=== PATIENT | male | born 1965 | race African-American/Black ===

== ENCOUNTER 2023-10-29 13:40 | Observation (INO) ==
[2023-10-29 14:14] LABS: ABS Basophils 0.1 10^3/uL (0.0-0.1); ABS Eosinophils 0.1 10^3/uL (0.0-0.5); ABS Lymphocytes 1.5 10^3/uL (1.0-4.8); ABS Monocytes 0.2 10^3/uL (0.0-1.1); ABS Neutrophils 2.7 10^3/uL (1.5-7.6); ABS Nucleated RBC 0.01 10^3/ul; Eosinophil % 1.7 %; Hematocrit 33.6 % (38-53); Hemoglobin 11.1 g/dL (13.2-16.3); Lymphocyte % 32.3 %; Mean Corpuscular Hemoglobin 25.9 pg (27-33); Mean Corpuscular Hgb Conc 32.9 g/dL (31-36); Mean Corpuscular Volume 78.6 fL (80-97); Mean Platelet Volume 8.9 fL (7.5-11.2); Nucleated Red Blood Cells % 0.2 %/100WBC (0.0-0.8); Platelet Count 210 10^3/uL (150-450); Red Blood Count 4.27 10^6/uL (4.06-5.63); Red Cell Distribution Width 19.1 % (12-17); White Blood Count 4.5 10^3/uL (3.6-10.2)
[2023-10-29 14:34] LABS: INR 1.17 (0.83-1.13)
[2023-10-29 14:56] LABS: Albumin/Globulin Ratio 1.5 (1-3); Calcium 10.2 mg/dL (8.6-10.3); Creatinine, Serum 1.07 mg/dL (0.67-1.17); Globulin 2.7 g/dL (2-4); Potassium 4.4 mmol/L (3.5-5.0); Total Bilirubin 0.4 mg/dL (0.2-1.0); Total Protein 6.7 g/dL (6.4-8.9); eGFR CKD-EPI 81.4 (>60)
[2023-10-29 15:53] LABS: High Sensitivity Troponin 1 Hr 30 pg/mL (<20)
[2023-10-29] MEDS: Iohexol 350 (CONTRAST) 500 ML MDV IV ONE (16:47)
[2023-10-29] MEDS: hydrALAZINE 20 mg/ml 1 ML Vial IV IV SLOW PU ONE (17:04)
[2023-10-29 18:06] LABS: High Sensitivity Troponin 3 Hr 31 pg/mL (<20)
[2023-10-29] MEDS: Morphine 2 MG/ML SYRINGE IV ONE (22:42)
[2023-10-30] MEDS: Buprenorp/Nalox 8-2 MG FILM SL SCH (00:05)
[2023-10-30 01:02] LABS: High Sensitivity Troponin 1 Hr 36 pg/mL (<20)
[2023-10-30] MEDS: Morphine 2 MG/ML SYRINGE IV ONE ×2 (05:50→20:25)
[2023-10-30 06:03] LABS: ABS Eosinophils 0.1 10^3/uL (0.0-0.5); ABS Lymphocytes 1.6 10^3/uL (1.0-4.8); ABS Monocytes 0.4 10^3/uL (0.0-1.1); ABS Neutrophils 2.2 10^3/uL (1.5-7.6); Eosinophil % 2.5 %; Hematocrit 33.7 % (38-53); Hemoglobin 11.1 g/dL (13.2-16.3); Lymphocyte % 36.8 %; Mean Corpuscular Hemoglobin 25.8 pg (27-33); Mean Corpuscular Volume 78.1 fL (80-97); Mean Platelet Volume 8.6 fL (7.5-11.2); Nucleated Red Blood Cells % 0.1 %/100WBC (0.0-0.8); Platelet Count 208 10^3/uL (150-450); Red Blood Count 4.31 10^6/uL (4.06-5.63); Red Cell Distribution Width 18.8 % (12-17); White Blood Count 4.3 10^3/uL (3.6-10.2)
[2023-10-30] MEDS: Enoxaparin 100 MG/ML SYR SUBCUT ONE (06:23)
[2023-10-30 06:24] LABS: Calcium 9.9 mg/dL (8.6-10.3); Creatinine, Serum 1.09 mg/dL (0.67-1.17); HDL Cholesterol 37.1 mg/dL; Phosphorus 3.5 mg/dL (2.5-5.0); Potassium 3.7 mmol/L (3.5-5.0); eGFR CKD-EPI 79.7 (>60)
[2023-10-30] MEDS: Aspirin EC 81 mg TAB.EC (enteric coated) PO SCH (08:10)
[2023-10-30] MEDS ORDERED: Aminophylline 25 MG/ML VIAL ONE (13:14)
[2023-10-30] MEDS ORDERED: Regadenoson 0.4 MG/5 ML SYRINGE ONE (13:14)
[2023-10-30] MEDS ORDERED: Sulfur Hexaflouride MICROSPHR 25 MG VIAL ONE (15:33)
[2023-10-30 18:57] LABS: Ferritin 40.6 ng/mL (24-336)
[2023-10-30 19:03] LABS: Folate 14.46 ng/mL (5.90-24.80)
[2023-10-30 20:08] LABS: C Reactive Protein 1.48 mg/L (<8.01)
[2023-10-31] MEDS: hydrALAZINE 20 mg/ml 1 ML Vial IV IV SLOW PU ONE (11:26)
[2023-10-31 13:59] VITALS: BP 172/97
[2023-11-04 14:28] LABS: Renin <0.6 ng/mL/h
== END 2023-10-31 17:43 ==
LOC: EDHOLD 13:40 → ED 13:40 → SUATTDRO 18:49 → MEDTELE 21:54
PROVIDERS: ADMIT Hospitalist; ATTEND Internal Medicine

== ENCOUNTER 2024-01-07 12:06 | Observation (INO) ==
[2024-01-07 12:52] LABS: ABS Eosinophils 0.2 10^3/uL (0.0-0.5); ABS Lymphocytes 1.5 10^3/uL (1.0-4.8); ABS Monocytes 0.2 10^3/uL (0.0-1.1); ABS Neutrophils 2.8 10^3/uL (1.5-7.6); ABS Nucleated RBC 0.01 10^3/ul; Eosinophil % 4.3 %; Hemoglobin 11.3 g/dL (13.2-16.3); Lymphocyte % 31.7 %; Mean Corpuscular Hemoglobin 25.5 pg (27-33); Mean Corpuscular Hgb Conc 31.5 g/dL (31-36); Mean Corpuscular Volume 80.8 fL (80-97); Mean Platelet Volume 9.3 fL (7.5-11.2); Nucleated Red Blood Cells % 0.3 %/100WBC (0.0-0.8); Platelet Count 195 10^3/uL (150-450); Red Blood Count 4.45 10^6/uL (4.06-5.63); Red Cell Distribution Width 20.3 % (12-17); White Blood Count 4.8 10^3/uL (3.6-10.2)
[2024-01-07] MEDS: Lactated Ringers 1000 ml BAG 1,000 ML IV SCH (12:57)
[2024-01-07 13:05] LABS: INR 1.43 (0.85-1.14)
[2024-01-07 13:12] LABS: Albumin/Globulin Ratio 1.7 (1-3); Calcium 9.9 mg/dL (8.6-10.3); Creatinine, Serum 1.09 mg/dL (0.67-1.17); Globulin 2.3 g/dL (2-4); Potassium 4.4 mmol/L (3.5-5.0); Total Bilirubin 0.4 mg/dL (0.2-1.0); Total Protein 6.3 g/dL (6.4-8.9); eGFR CKD-EPI 79.2 (>60)
[2024-01-07] MEDS: Iohexol 350 (CONTRAST) 500 ML MDV IV ONE (13:54)
[2024-01-07 14:08] LABS: High Sensitivity Troponin 1 Hr 53 pg/mL (<20)
[2024-01-07 16:24] LABS: High Sensitivity Troponin 3 Hr 60 pg/mL (<20)
[2024-01-07] MEDS: Morphine 2 MG/ML SYRINGE IV ONE (19:52)
[2024-01-07] MEDS: Enoxaparin 40 MG/0.4 ML SYR SUBCUT ONE (19:53)
[2024-01-07] MEDS: Buprenorp/Nalox 8-2 MG FILM SL SCH (19:53)
[2024-01-07 20:06] LABS: Urine Appearance Clear; Urine Bilirubin Negative (Negative); Urine Blood Negative (Negative); Urine Color Colorless; Urine Glucose Negative (Negative); Urine Ketones Negative (Negative); Urine Nitrite Negative (Negative); Urine Protein Negative (Negative); Urine Specific Gravity 1.024 (1.002-1.030); Urine Urobilinogen Negative (Negative)
[2024-01-07 20:23] LABS: Urine Benzodiazepine Screen None Detected (None Detect); Urine Cannabinoids Screen None Detected (None Detect); Urine Opiates Screen None Detected (None Detect)
[2024-01-07 21:12] LABS: HDL Cholesterol 30.5 mg/dL
[2024-01-08] MEDS: Aspirin EC 81 mg TAB.EC (enteric coated) PO SCH (09:34)
[2024-01-08 09:51] VITALS: BP 173/118
== END 2024-01-08 16:00 ==
LOC: ED 12:06 → EDHOLD 12:06 → MEDTELE 21:53
PROVIDERS: ADMIT Hospitalist; ATTEND Internal Medicine

== ENCOUNTER 2024-02-03 10:01 | Observation (INO) ==
[2024-02-03 11:20] LABS: ABS Eosinophils 0.3 10^3/uL (0.0-0.5); ABS Lymphocytes 1.8 10^3/uL (1.0-4.8); ABS Monocytes 0.4 10^3/uL (0.0-1.1); ABS Neutrophils 2.5 10^3/uL (1.5-7.6); ABS Nucleated RBC 0.01 10^3/ul; Eosinophil % 5.6 %; Hematocrit 35.5 % (38-53); Hemoglobin 11.6 g/dL (13.2-16.3); Lymphocyte % 36.5 %; Mean Corpuscular Hemoglobin 26.5 pg (27-33); Mean Corpuscular Hgb Conc 32.6 g/dL (31-36); Mean Corpuscular Volume 81.4 fL (80-97); Mean Platelet Volume 9.3 fL (7.5-11.2); Nucleated Red Blood Cells % 0.1 %/100WBC (0.0-0.8); Platelet Count 195 10^3/uL (150-450); Red Blood Count 4.36 10^6/uL (4.06-5.63); Red Cell Distribution Width 20.2 % (12-17); White Blood Count 4.9 10^3/uL (3.6-10.2)
[2024-02-03 11:30] LABS: INR 1.21 (0.85-1.14)
[2024-02-03 12:09] LABS: Albumin 4.2 g/dL (3.2-5.2); Albumin/Globulin Ratio 1.7 (1-3); Calcium 10.4 mg/dL (8.6-10.3); Creatinine, Serum 1.16 mg/dL (0.67-1.17); Globulin 2.5 g/dL (2-4); Potassium 4.4 mmol/L (3.5-5.0); Total Bilirubin 0.4 mg/dL (0.2-1.0); Total Protein 6.7 g/dL (6.4-8.9); eGFR CKD-EPI 73.5 (>60)
[2024-02-03 12:46] LABS: High Sensitivity Troponin 1 Hr 42 pg/mL (<20)
[2024-02-03] MEDS: Iohexol 350 (CONTRAST) 500 ML MDV IV ONE (13:07)
[2024-02-04] MEDS: Aspirin EC 81 mg TAB.EC (enteric coated) PO SCH (00:07)
[2024-02-04] MEDS: Enoxaparin 100 MG/ML SYR SUBCUT SCH (00:08)
[2024-02-04] MEDS: Buprenorp/Nalox 8-2 MG FILM SL SCH (00:13)
[2024-02-04 06:00] LABS: ABS Basophils 0.1 10^3/uL (0.0-0.1); ABS Eosinophils 0.2 10^3/uL (0.0-0.5); ABS Lymphocytes 2.1 10^3/uL (1.0-4.8); ABS Monocytes 0.4 10^3/uL (0.0-1.1); ABS Neutrophils 2.2 10^3/uL (1.5-7.6); ABS Nucleated RBC 0.01 10^3/ul; Eosinophil % 4.9 %; Hematocrit 34.3 % (38-53); Hemoglobin 11.2 g/dL (13.2-16.3); Lymphocyte % 42.3 %; Mean Corpuscular Hemoglobin 26.2 pg (27-33); Mean Corpuscular Hgb Conc 32.6 g/dL (31-36); Mean Corpuscular Volume 80.4 fL (80-97); Mean Platelet Volume 8.8 fL (7.5-11.2); Nucleated Red Blood Cells % 0.2 %/100WBC (0.0-0.8); Platelet Count 184 10^3/uL (150-450); Red Blood Count 4.27 10^6/uL (4.06-5.63); Red Cell Distribution Width 19.9 % (12-17); White Blood Count 5.1 10^3/uL (3.6-10.2)
[2024-02-04 06:54] LABS: Calcium 9.8 mg/dL (8.6-10.3); Creatinine, Serum 0.99 mg/dL (0.67-1.17); Potassium 4.2 mmol/L (3.5-5.0); eGFR CKD-EPI 88.9 (>60)
[2024-02-04] MEDS ORDERED: Sulfur Hexaflouride MICROSPHR 25 MG VIAL IV PRN (09:20)
[2024-02-04 11:01] VITALS: BP 185/92
[2024-02-04 11:42] LABS: High Sensitivity Troponin 1 Hr 41 pg/mL (<20)
== END 2024-02-04 13:25 | disposition left against medical advice (07) ==
LOC: ED 10:01 → EDHOLD 10:01
PROVIDERS: ADMIT Student in an Organized Health Care Education/Training Program; ATTEND Internal Medicine